=== PATIENT | male | born 1990 | race African-American/Black ===

== ENCOUNTER 2017-11-04 21:54 | Emergency (ER) | payer MEDICAID, MEDICARE ==
[~2017-11-04] VITALS: Ht 188 cm; Wt 122.5 kg
[2017-11-05 00:22] LABS: BASOPHILS % 0.6 % (0.0-2.0); HEMATOCRIT. 43.4 % (42.0-52.0); HEMOGLOBIN. 13.9 g/dL (14.0-18.0); LYMPHOCYTES % 30.2 % (20.0-50.0); MEAN CORPUSCULAR HEMOGLOBIN 27.3 pg (28.0-32.0); MEAN CORPUSCULAR VOLUME 85.2 fL (80.0-94.0); MEAN PLATELET VOLUME 8.2 fl (7.4-10.4); NEUTROPHILS % 56.2 % (40.0-76.0); PLATELET 253 x1000/uL (130-400); RED BLOOD CELL COUNT 5.09 mill/uL (4.7-6.1); RED CELL DISTRIBUTION WIDTH 15.4 % (11.6-14.6)
[2017-11-05 00:39] LABS: CARBON DIOXIDE 29 mEq/L (21-32); CHLORIDE 106 mEq/L (98-107)
[2017-11-05 03:37] VITALS: BP 151/79
== END 2017-11-05 03:37 | disposition home or self-care (01) ==
LOC: ER 21:54
DX: S09.90XA Unspecified injury of head, initial encounter (principal); R55 Syncope and collapse; F31.9 Bipolar disorder, unspecified; F17.200 Nicotine dependence, unspecified, uncomplicated; F12.10 Cannabis abuse, uncomplicated; X58.XXXA Exposure to other specified factors, initial encounter; Y93.89 Activity, other specified; Y92.89 Other specified places as the place of occurrence of the external cause; Y99.8 Other external cause status
CPT/HCPCS: 36415; 70450; 80053; 85025; 93005; 99285

== ENCOUNTER 2022-06-12 21:49 | Emergency (ER) | payer MEDICAID, MEDICARE ==
[~2022-06-12] VITALS: Ht 188 cm; Wt 120.0 kg
[2022-06-12] MEDS ORDERED: OLANZAPINE 10MG TABLET PO SCH (22:15)
[2022-06-12] MEDS ORDERED: DIPHENHYDRAMINE 50MG CAPSULE PO ONE (22:15)
[2022-06-13 01:35] LABS: BASOPHILS % 0.7 % (0.0-2.0); EOSINOPHILS % 2.9 % (0.0-5.0); HEMATOCRIT. 38.9 % (42.0-52.0); HEMOGLOBIN. 12.8 g/dL (14.0-18.0); LYMPHOCYTES % 44.6 % (20.0-50.0); MEAN CORPUSCULAR HEMOGLOBIN 28.1 pg (28.0-32.0); MEAN CORPUSCULAR VOLUME 85.6 fL (80.0-94.0); MEAN PLATELET VOLUME 7.8 fl (7.4-10.4); MONOCYTES % 11.8 % (2.0-8.0); PLATELET 241 x1000/uL (130-400); RED BLOOD CELL COUNT 4.54 mill/uL (4.7-6.1); RED CELL DISTRIBUTION WIDTH 14.7 % (11.6-14.6)
[2022-06-13 01:42] LABS: CHLORIDE 109 mEq/L (98-107)
[2022-06-13 01:48] LABS: ETHANOL BLOOD < 10 mg/dL
[2022-06-13] MEDS ORDERED: DIPHENHYDRAMINE 50MG CAPSULE PO NR (02:00)
[2022-06-13 02:04] LABS: *AMPHETAMINES SCREEN URINE NEGATIVE (NEGATIVE); *BARBITURATES SCREEN URINE NEGATIVE (NEGATIVE); *BENZODIAZEPINES SCREEN URINE NEGATIVE (NEGATIVE); *COCAINE SCREEN URINE NEGATIVE (NEGATIVE); CANNABINOID URINE SCREEN PRESUMTIVE POSITIVE (NEGATIVE); METHADONE URINE SCREEN NEGATIVE (NEGATIVE); OPIATES URINE SCREEN NEGATIVE (NEGATIVE); PHENCYCLIDINE URINE SCREEN NEGATIVE (NEGATIVE)
[2022-06-13 06:00] VITALS: BP 96/59
== END 2022-06-13 12:25 | disposition home or self-care (01) ==
LOC: ER 21:49 → CANBEDREQ 06-13 06:34 → ER 06-13 12:25
DX: R45.851 Suicidal ideations (principal); U07.1 COVID-19; R73.9 Hyperglycemia, unspecified; F32.9 Major depressive disorder, single episode, unspecified
CPT/HCPCS: 36415; 80048; 80305; 80307; 80320; 80329; 85025; 99283; C9803; Q0163; U0003; U0005; G0480